=== PATIENT | female | born 1960 | race Caucasian/White ===

== ENCOUNTER 2017-05-22 15:57 | Emergency (ER) | payer OTHER ==
[~2017-05-22] VITALS: Ht 152.4 cm; Wt 55.9 kg
[~2017-05-22 15:57] MED LIST: METF500T7 PO
[2017-05-22] MEDS ORDERED: METF500T4 PO (16:04)
[2017-05-22] MEDS ORDERED: SITA100 PO (16:04)
[2017-05-22 16:11] LABS: GLUCOSE,POINT OF CARE 241 MG/DL (70-110)
[2017-05-22] MEDS ORDERED: IBUPROFEN 800 MG TABLET PO ONE (17:30)
[2017-05-22] MEDS ORDERED: ONDANSETRON HCL 4 MG TABLET PO ONE (17:30)
[2017-05-22 18:50] VITALS: BP 131/87
== END 2017-05-22 19:01 | disposition home or self-care (01) ==
LOC: EMS 15:59
DX: K52.9 Noninfective gastroenteritis and colitis, unspecified (principal); M79.1 Myalgia; E11.9 Type 2 diabetes mellitus without complications
CPT/HCPCS: 82962; 99283; Q0162

== ENCOUNTER 2019-01-24 08:50 | Emergency (ER) | payer OTHER ==
[~2019-01-24] VITALS: Ht 157.5 cm; Wt 54.5 kg
[~2019-01-24 08:50] MED LIST changes: +METF-960 PO; +SITA100 PO
[2019-01-24] MEDS ORDERED: KETOROLAC TROMETHAMINE 30 MG/ML VIAL IM ONE (09:30)
[2019-01-24] MEDS ORDERED: LIDOCAINE 5% TRANSDERMAL PATCH TD ONE (09:30)
[2019-01-24 10:27] VITALS: BP 114/64
== END 2019-01-24 10:32 | disposition home or self-care (01) ==
LOC: EMS 08:51
DX: R20.2 Paresthesia of skin (principal); M54.42 Lumbago with sciatica, left side; E11.9 Type 2 diabetes mellitus without complications; Z87.891 Personal history of nicotine dependence; Z79.84 Long term (current) use of oral hypoglycemic drugs
CPT/HCPCS: 82962; 96372; 99283; J1885

== ENCOUNTER 2022-02-25 14:45 | Emergency (ER) | payer OTHER ==
[~2022-02-25] VITALS: Ht 152.4 cm; Wt 52.7 kg
[~2022-02-25 14:45] MED LIST changes: +METF-1211 PO; +METF-81 PO; -METF-960 PO; -METF500T7 PO
[2022-02-25 14:48] VITALS: BP 107/61
[2022-02-25 15:05] LABS: GLUCOSE,POINT OF CARE 142 MG/DL (70-110)
== END 2022-02-25 15:50 | disposition left against medical advice (07) ==
LOC: EMS 14:49
DX: Z53.21 Procedure and treatment not carried out due to patient leaving prior to being seen by health care provider (principal)
CPT/HCPCS: 82962; 93005